=== PATIENT | male | born 1950 | race Caucasian/White ===

== ENCOUNTER → 2018-09-20 | Outpatient (CLI) | payer OTHER ==
[~2018-09-20] VITALS: Ht 170.2 cm; Wt 81.6 kg
[~2018-09-20] MED LIST: ASPIRIN81 M2 PO; HYDROCODONE-AP1 EA11 PO; IBUPROFEN 200200 M1 PO; LOVASTATIN 20 M20 MG PO; LOVASTATIN40 MG PO; MOBIC15 MG PO; PRILOSEC OTC20 MG PO; TRAVATAN Z2.5 ML OPHTHALMIC; XALATAN2.5 ML OPHTHALMIC
--- NOTE | ~2018-09-20 | HPC ---
[facility] [address] [place] [address] PAIN MANAGEMENT CONSULTATION Name: MIKAL FIERRO Room #: REG [facility] ArelyVivekLexaVivek#: [id number] Admission: 09/20/18 Attend Phys: Jarred Villagran MD Discharge: Date of : 46 Report #: [id number] THIS REPORT FOR: //name// CC: Barry Villagran DATE OF SERVICE: 09/20/2018 CHIEF COMPLAINT: Back pain, right leg pain. HISTORY OF PRESENT ILLNESS: The patient is a 68-year-old gentleman, who has been referred to the pain clinic by Dr. Lacey. The patient states that he has been having pain and discomfort in his right leg and buttocks, which has been radiating down into his ankle. This has been problematic for greater than 6 weeks. He notes that the pain is worse when he is standing. Pain sometimes improves after lying down on his left side. He notes that if he stands for a prolonged period of time, the pain becomes quite problematic and he must get off his feet. He has tried a Medrol Dosepak. He did not notice any significant benefit from that medication. He has tried nonsteroidal anti-inflammatory medications. He describes it as a shooting, sharp pain. He rates it as an 8/10. He denies similar pain in the past. He denies any bowel or bladder dysfunction. He has been doing stretching exercises to try and decrease his pain and discomfort with ____. PAST MEDICAL HISTORY: Generally, he is in good health. He has hypercholesterolemia. PAST SURGICAL HISTORY: Spinal surgery in 1999. MEDICATIONS: Ibuprofen 200 mg q.6 hours p.r.n., aspirin 81 mg, Xalatan 0.005% eye drops, and lovastatin 40 mg daily. ALLERGIES: No known drug allergies. SOCIAL HISTORY: He is a security operations center operator. He is not working at this juncture, has been off work for 3 years. REVIEW OF SYSTEMS: Glaucoma/cataracts, shortness of breath, awakens at night to urinate. PAIN CLINIC ASSESSMENT: 1. The patient has some osteoarthritic changes in his hands. He has not been treated for rheumatoid arthritis. 2. Pain intensity is 8/10. 3. Fall risk. The patient has not fallen in the last 3 months. 4. Blood thinner. The patient is not on a blood thinning medication. [address] [address] PAIN MANAGEMENT CONSULTATION Name: MIKAL FIERRO Abdias [id number] Admission: 09/20/18 Attend Phys: Jarred Villagran MD Discharge: Date of : 46 Report #: [id number] 5. History of hypertension. The patient is not being treated for hypertension. 6. Opioid medications greater than 6 weeks. The patient is not on an opioid medication. 7. Risk assessment tool, low for opioid use. 8. Functional assessment tool, /. 9. Recreational drug use. The patient denies use of recreational drugs. 10. Tobacco: The patient is a former smoker. 11. Alcohol. The patient drinks about 3 alcoholic beverages daily. PHYSICAL EXAMINATION: GENERAL: The patient is a well-developed, well-nourished white male. He appears his stated age. He is alert and oriented x 3. Affect is appropriate. Speech is fluent. Height is 5 feet 7 inches, weight is 180 pounds, and BMI is 28.2. VITAL SIGNS: Blood pressure is 116/84, pulse is 92, respiratory rate is 16, and room air saturation is 94%. HEENT: Normocephalic, atraumatic. Extraocular eye muscles intact. Sclerae nonicteric. Mucous membranes are moist. NECK: Without adenopathy or JVD. LUNGS: Clear to auscultation. HEART: Regular rate. S1, S2. ABDOMEN: Nontender. EXTREMITIES: Upper extremity muscle strength is judged to be 5/5 for the major muscle groups. Cipriano's sign is negative. Anterior, posterior spring tests are negative. The patient is able to stand on his toes. He is able to walk on his heels slightly. The patient notes increased pain and discomfort while standing. Straight leg raise on the right is positive. The patient complains of pain in the L5-S1 dermatomal distribution from the buttocks down to the posterior portion of his heel. LABORATORY DATA: MRI of the lumbar spine dated 09/05/2018: 1. L3-L4: There is a mild disk bulge and facet hypertrophy. Partial laminectomy defect detected and noted on the right. There were no canal stenosis. There is mild foraminal narrowing. Thecal sac is 1.4 cm AP. 2. L4-L5: Disk bulge with endplate spurring are noted along with facet hypertrophy. There is a aumt-jw-njoepcwv left and mild right foraminal narrowing. There may be some partial laminectomy on the right at this level. Thecal sac is 1.2 cm AP. 3. L5-S1: There is disk bulge and osteophyte complex. There is gas noted at the S1 segment of the sacrum and a right paracentral location, suggest a small right paracentral extrusion type herniation migrating inferiorly measuring 0.9 cm cranial caudal and at least 0.6 mm transfers and 0.3 cm AP. There is facet hypertrophy. No canal stenosis. There is dolk-vm-mezlrfoe bilateral foraminal narrowing. Thecal sac is 1.5 cm AP. IMPRESSION: Lumbar radiculopathy. [facility] [address] [place] [address] PAIN MANAGEMENT CONSULTATION Name: MIKAL FIERRO [facility] #: [facility]aren.[facility] [id number] Admission: 09/20/18 Attend Phys: Jarred Villagran MD Discharge: Date of : 46 Report #: [id number] RECOMMENDATIONS: We have discussed treatment options with the patient. Risks and benefits of an epidural steroid injection were discussed. The patient's MRI was reviewed with him and his . Possible complications of the procedure were discussed. The patient will return to the pain clinic at which time he will then undergo an epidural steroid injection. We would like to thank you for letting us to participate in his care. We hope he continues to improve. By: [id number] Jarred Villagran MD /JERO
[2018-09-20 10:01] VITALS: BP 116/84
== END ==
LOC: PAIN 09:30
DX: M19.041 Primary osteoarthritis, right hand (principal); I10 Essential (primary) hypertension; Z79.891 Long term (current) use of opiate analgesic; Z91.81 History of falling

== ENCOUNTER → 2018-09-22 | Outpatient (CLI) | payer OTHER ==
[~2018-09-22] VITALS: Ht 170.2 cm; Wt 82.3 kg
--- NOTE | ~2018-09-22 | HPC ---
[facility] [address] [place] [address] PAIN MANAGEMENT CONSULTATION Name: MIKAL FIERRO Room #: REG ZAIRE Kb#: [id number] Admission: 09/22/18 Attend Phys: Jarred Villagran MD Discharge: Date of : 46 Report #: [id number] THIS REPORT FOR: //name// CC: Barry Villagran DATE OF SERVICE: 09/22/2018 CHIEF COMPLAINT: Pain in the back with pain radiating down the left foot and leg. He is here for an injection today. FOLLOWUP HISTORY: The patient is a 68-year-old gentleman who has been seen in the Pain Clinic because of lumbar radicular pain. He has been experiencing pain, which has radiated down into his right buttocks and cause pain down into his ankle. This has been very painful. It has been problematic for the last few weeks. Notes that the pain has worsened over time. Notes his pain improves somewhat when he is lying down on his left side. Standing for any significant amount of time causes worsening of pain and notes pain radiating down into his leg. He did try a Medrol Dosepak. He still has pain, which is problematic. It was felt that the Medrol Dosepak may have provided some benefit, but not fci. Continues to use nonsteroidal anti-inflammatory medications. Describes his pain as shooting and denies any problem with his bowel or bladder function. Has continued to try to exercise to help that the pain ALLERGIES: No known drug allergies. MEDICATIONS: Ibuprofen 200 mg q. 6 hours p.r.n., aspirin 81 mg, Xalatan 0.005% eyedrops, lovastatin 40 mg daily. PAIN CLINIC ASSESSMENT/PQRS: 1. The patient does have some osteoarthritic changes involving his hand. He has not been treated for rheumatoid arthritis. 2. Pain intensity, 05/05. 3. Height 5 feet 7 inches, weight 181 pounds, BMI is 28.4. 4. Vital signs: Blood pressure 153/94, pulse 79, respiratory rate 18, room air saturation 97%. 5. Fall risk. The patient has not fallen in the last 3 months. 6. Blood thinner. The patient is not on a blood thinning medication. 7. Hypertension. The patient is being treated for hypertension. 8. Opioids greater than 6 weeks. 9. Risk assessment tool. The patient has low score with use of opioid medications. 10. Functional assessment tool, . 11. Recreational drug use. The patient denies use of recreational drugs. 12. Tobacco: The patient is a former smoker. 13. Alcohol. The patient smokes or drinks about [address] [address] PAIN MANAGEMENT CONSULTATION Name: MIKAL FIERRO Abdias [facility]: [facility] [id number] Admission: 09/22/18 Attend Phys: Jarred Villagran MD Discharge: Date of : 46 Report #: [id number] PHYSICAL EXAMINATION: GENERAL: The patient is a well-developed, well-nourished white male appears his stated age. He is alert and oriented x 3. Affect is appropriate. Speech is fluent. HEENT: Normocephalic, atraumatic. Extraocular eye muscles intact. Sclerae nonicteric. Mucous membranes are moist. NECK: Without adenopathy or JVD. LUNGS: Clear to auscultation. HEART: Regular rate. S1, S2. ABDOMEN: Nontender. Bowel sounds present. EXTREMITIES: Upper extremity muscle straight judged to be 5/5 for the major muscle groups in the upper extremity. Cipriano's sign negative. Anterior and posterior spring test negative. The patient has pain and discomfort radiating down the L5-S1 dermatomal distribution with standing, also right ____. Straight leg raise positive. IMPRESSION: 1. Hypercholesterolemia. 2. Hypertension. 3. Lumbar radiculopathy. RECOMMENDATIONS: We discussed treatment options with the patient. Risks and benefits of an epidural steroid injection were discussed. Possible complications of the procedure, which could include but are not limited to infection, worsening of pain, no improvement in pain, paralysis, spinal headache were discussed. The patient elects to proceed. PROCEDURE NOTE: The patient was taken to the procedure area. He was assisted in getting on the examination table. His back has been sterilely prepped with a Betadine solution. A pillow was placed under his abdomen to bolster and improve positioning. Fluoroscopy using anterior, posterior as well as lateral viewing implemented. His back was sterilely prepped. A 25-gauge needle was then advanced into the right L5 paraspinous area. A 17-gauge Tuohy with loss of resistance technique was used to gain access to the epidural space. There was no CSF, heme or paresthesia. Total of 80 mg Depo-Medrol, 40 mg triamcinolone and 2 mL of 0.25% bupivacaine was injected. The patient tolerated the procedure well. There were no complications. He remained in the Pain Clinic for an appropriate amount of time. A total of 8 seconds fluoroscopy time was used. The pain score was 0 at the time of discharge. He will follow up in the future as needed. [address] [address] PAIN MANAGEMENT CONSULTATION Name: MIKAL FIERRO Room #: REG ZAIRE Sears.#: [id number] Admission: 09/22/18 Attend Phys: Jarred Villagran MD Discharge: Date of : 46 Report #: [id number] We would like to thank you for letting us participate in his care. We hope he continues to improve. By: [id number] Jarred Villagran MD /[email or web address]
[2018-09-22 08:11] VITALS: BP 153/94
--- NOTE | 2018-09-22 08:17 | NUR ---
Pain Clinic Assessment: 1. History of Osteoarthritis: HANDS History of Rheumatoid Arthritis: Not Applicable 2. Height: 5 ft. 7 in. 170.2 cm. Weight: 181.4 lb. oz. 82.283 kg. Patient's BMI: 28.4 3. Vital Signs: BP: 153/94 Pulse: 79 Resp: 18 Temp: 02 Sat: 97 ECG Mon: 4. Pain Intensity: 5 5. Fall Risk: Dizziness: N Needs help standing or walking: N Fallen in the last 3 months: N Fall risk comments: 6. Patient on Blood Thinner: None 7. History of Hypertension: N 8. Opioid Therapy greater than 6 weeks: N Opiate Contract Signed: 9. Risk Assessment Tool Provided: 10. Functional Assessment Tool: 11. Recreational Drug Use: Never Drug Type: Tobacco Use: Former Smoker Tobacco Type: Amount or Packs/day: How Many Years: Alcohol Use: Yes Frequency: Daily Quant: 3
== END | disposition home or self-care (01) ==
LOC: PAIN 07:51
DX: M54.16 Radiculopathy, lumbar region (principal); I10 Essential (primary) hypertension; E78.00 Pure hypercholesterolemia, unspecified; M19.049 Primary osteoarthritis, unspecified hand; R59.1 Generalized enlarged lymph nodes; Z79.82 Long term (current) use of aspirin; Z79.899 Other long term (current) drug therapy; Z87.891 Personal history of nicotine dependence